=== PATIENT | male | born 1985 | race Caucasian/White ===

== ENCOUNTER 2024-10-21 21:13 | Emergency (ER) | payer OTHER, SELFPAY ==
--- NOTE | ~2024-10-21 | XR_ITS ---
CLINICAL HISTORY: Laceration 3 view right hand Comparison: None Findings: Bones intact. No dislocations. No arthritic change. No erosions. No radiopaque foreign body. IMPRESSION: 1. No acute findings This document has been electronically signed by: Chaitanya Pride MD on 10/21/2024 22:13:05
[2024-10-21 21:23] VITALS: BP 101/68; PULSE 81; RESP 18; TEMP 36.5; O2SAT 96; BMI 25.1
== END 2024-10-22 00:43 | disposition left against medical advice (07) ==
LOC: HO.ED 10-22 00:24
PROVIDERS: Emergency Provider Emergency Medicine
DX: S61.216A Laceration without foreign body of right little finger without damage to nail, initial encounter (principal); W25.XXXA Contact with sharp glass, initial encounter; Y93.89 Activity, other specified; Y92.9 Unspecified place or not applicable; Y99.9 Unspecified external cause status; Z53.21 Procedure and treatment not carried out due to patient leaving prior to being seen by health care provider
CPT/HCPCS: 73130; 99281

== ENCOUNTER → 2024-10-21 21:30 | Outpatient (BNV) | payer OTHER, SELFPAY | PROVIDERS: Visit Provider Radiology Diagnostic Radiology | DX: S61.411A Laceration without foreign body of right hand, initial encounter (principal) | CPT/HCPCS: 73130 ==

== ENCOUNTER 2024-10-22 07:06 | Emergency (ER) | payer OTHER, SELFPAY ==
[2024-10-22 07:26] VITALS: BP 132/81; PULSE 90; RESP 16; TEMP 37; O2SAT 98; BMI 25.2
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
[2024-10-22] MEDS: Diphth,Pertus(ACell),Tet Adult 0.5 ML SYRINGE IM (09:02)
[2024-10-22 09:07] VITALS: BP 132/81; PULSE 90; RESP 16; TEMP 37; O2SAT 98
--- NOTE | 2024-10-22 09:07 | PC.NURSE ---
PTs laceration was closed by skin glue by provider, tetanus given and patient discharged with prescriptions for antibiotics
== END 2024-10-22 09:07 | disposition home or self-care (01) ==
PROVIDERS: Emergency Provider Emergency Medicine
DX: S61.411A Laceration without foreign body of right hand, initial encounter (principal); W25.XXXA Contact with sharp glass, initial encounter; Y93.9 Activity, unspecified; Y92.9 Unspecified place or not applicable; Y99.9 Unspecified external cause status; Z23 Encounter for immunization
CPT/HCPCS: 12001; 90471; 90715; 99282; 99284

== ENCOUNTER 2025-01-05 06:15 | Emergency (ER) | payer OTHER, SELFPAY ==
[2025-01-05 06:16] VITALS: BP 123/89; PULSE 74; RESP 15; TEMP 36.6; O2SAT 98; BMI 25.7
--- NOTE | 2025-01-05 08:07 | ED_ITS ---
HPI - Dental/Oral General Chief complaint: Dental/Oral Stated complaint: dental pain Time Seen by Provider: 01/05/25 08:02 Source: patient and RN notes reviewed Mode of arrival: ambulatory Limitations: no limitations History of Present Illness ED Provider: Jud Arreguin PA-C HPI Narrative: This is a 39-year-old male who presents emergency department due to left upper dental pain. Patient reports that he awoke last night with sudden onset of left upper dental pain. He states that he has a known issue with his left upper tooth however this is not caused him to have any issues. He states that he ate ice cream last night and believes that this exacerbated the pain. Denies taking any medications at home to treat his current symptoms. No fevers or chills. No other complaints or concerns at this time. Teeth map: 2 1. Onset (ago): day(s) Duration: constant Severity: moderate Relieving factors: nothing Exacerbating factors: nothing Related Data Previous Rx's ?Medication ?Instructions ?Recorded cephalexin 500 mg capsule 500 mg PO Q6H 7 days #28 cap s 10/22/24 doxycycline hyclate 100 mg tablet 100 mg PO BID 7 days #14 tabs 10/22/24 acetaminophen 500 mg tablet 500 - 1,000 mg (1 - 2 x 50 0 mg) PO 01/05/25 (Tylenol Extra Strength) QID PRN pain #30 tabs amoxicillin 875 mg-potassium 1 tab PO BID 7 days #14 t abs 01/05/25 clavulanate 125 mg tablet ibuprofen 600 mg tablet 600 mg PO Q6H PRN pain #30 t abs 01/05/25 Allergies Allergy/AdvReac Type Severity Reaction Status Date / Time No Known Allergies Allergy Verified 01/05/25 06:20 Review of Systems 2 Review of Systems: Yes all other systems are reviewed and are negative Constitutional: Constitutional: Reports as per HPI [facility] Social History Social History Smoked in Last 30 Days: Yes Substance Use Type: Marijuana Advance Directives: No Do you have a plan to hurt others: No Plan Physical Exam 2 Vital Signs: Vital Signs: Last Vital Signs Temp 97.8 F 01/05/25 06:16 Pulse 74 01/05/25 06:16 Resp 15 01/05/25 06:16 BP 123/89 01/05/25 06:16 Pulse Ox 98 01/05/25 06:16 O2 Del Method Room Air 01/05/25 06:16 BMI result Body Mass Index 25.7 Const: General: cooperative, comfortable and no acute distress O rientation/consciousness: patient oriented x3 Limitations: no limitations HEENT: Other: Tooth 14. With no obvious decay however patient has exquisite tenderness palpation, no surrounding gingival edema, erythema or fluctuance. No obvious dental abscess seen. Tolerating secretions well without any difficulty. Head: Yes normal to inspection, Yes normocephalic and Yes atraumatic E ars: hearing grossly normal bilaterally General nose exam: Normal external nose present Face and sinus: Yes normal facial exam Mouth: Normal oral and palatal mucosa present, oropharynx normal and moist mucous membranes Throat: Yes posterior oropharynx normal Eyes: General: appearance normal, both eyes and all related structures E yelids: Yes eyelids normal Conjunctivae: conjunctivae normal Sclerae: s clerae normal Pupils: Equal, round and reactive pupils present EOM: EOMs intact bilaterally Neck: Neck: Yes normal visual inspection, Yes full ROM and Yes no lymphadenopathy Lymphatic: no lymphadenopathy noted Chest: Chest palpation & inspection: normal inspection of the chest Resp: Effort & Inspection: normal respiratory effort and able to speak in complete sentences Auscultation: clear to auscultation bilaterally, no crackles, no rales, no rhonchi and no wheezes Cardio: Rate: regular rate Rhythm: regular rhythm Heart sounds: S1 normal heart sound present and S2 normal heart sound present GI: Inspection: Yes normal to inspection Skin: General skin exam: no rashes or lesions noted Trauma: no lacerations or abrasions Wounds: no wounds Neuro: General: patient oriented x3 and moves all extremities Cranial nerves: Yes Equal, round and reactive pupils present Extrem: General: Yes normal to inspection Right upper extremity: normal to inspection Left upper extremity: normal to inspection Right lower extremity: normal to inspection Left lower extremity: normal to inspection Medical Decision Making Medical Decision Making MDM Narrative: This is a 39-year-old male who presents emergency department with complaints of left upper dental pain which started last night. On arrival, vital signs within normal limits. He is speaking in full sentences under no acute distress. Patient has pain overlying tooth 14. No surrounding gingival erythema, fluctuance or obvious abscess. He is tolerating secretions without any difficulty. Will treat with course of Augmentin, given 1st dose of the antibiotic in the department. Also discharged on ibuprofen and Tylenol. Given strict return precautions. Patient stable for discharge. Differential Diagnosis Differential Diagnoses: The differential diagnosis associated with the presentation includes Dental pain, dental abscess, dental fracture, dental caries Discharge Plan Discharge Clinical Impression: Pain, dental Patient Disposition: Home, Self-Care Instructions: Toothache (ED) Additional Instructions: You were seen in the emergency department due to dental pain. Please take prescribed antibiotic as well as ibuprofen and or Tylenol as needed for pain and symptoms. You were given your 1st dose of the antibiotic here in the department, and you also were given Tylenol 1 g. Take ibuprofen 600 mg every 6 hours with food, and take Tylenol 500 mg to a 1000 mg every 8 hours. Alternating between both of these medications can give you good pain relief. Please follow-up with a dentist. If any new or worsening symptoms occur including but not limited to worsening pain, high fevers, dizziness, blurred vision, please seek emergent care Prescriptions: New ibuprofen 600 mg tablet 600 mg PO Q6H PRN (Reason: pain) Qty: 30 0RF acetaminophen [Tylenol Extra Strength] 500 mg tablet 500 - 1,000 mg PO QID PRN (Reason: pain) Qty: 30 0RF amoxicillin-pot clavulanate 875-125 mg tablet 1 tab PO BID 7 Days Qty: 14 0RF No Action cephalexin 500 mg capsule 500 mg PO Q6H 7 Days Qty: 28 0RF doxycycline hyclate 100 mg tablet 100 mg PO BID 7 Days Qty: 14 0RF Print Language: Greek
[2025-01-05 08:24] VITALS: BP 113/76; PULSE 62; RESP 16; TEMP 36.6; O2SAT 95
[2025-01-05 08:26] VITALS: BP 113/76; PULSE 62; RESP 16; TEMP 36.6; O2SAT 95
== END 2025-01-05 08:26 | disposition home or self-care (01) ==
PROVIDERS: Emergency Provider Emergency Medicine
DX: K08.89 Other specified disorders of teeth and supporting structures (principal)
CPT/HCPCS: 99283; 99284